=== PATIENT | female | born 1955 | race Caucasian/White ===

== ENCOUNTER 2019-07-17 06:25 | Day surgery (SDC) | payer BC ==
[2019-07-15 09:50] LABS: Basophils % 0.3 % (0-1.3); Hematocrit 40.9 % (36.0-45.0); Lymphocytes % 43.4 % (15.3-44.8); MPV 11.4 fL (7.6-11.3); RBC Red Blood Cell Count 4.46 M/uL (3.86-4.86)
[2019-07-15 09:51] LABS: Urine Appearance CLEAR; Urine Bilirubin NEGATIVE (NEG); Urine Blood NEGATIVE (NEG); Urine Color YELLOW; Urine Glucose NEGATIVE (NEG); Urine Protein NEGATIVE (NEG); Urine Specific Gravity 1.025 (1.005-1.030); Urine Urobilinogen 0.2 mg/dL (0.2-1.0); Urine pH 6.5 (5.0-7.0)
[2019-07-15 09:54] LABS: Urine Microscopic Reflex NO UMIC
[2019-07-17] MEDS ORDERED: SCOPOLAMINE HYDROBROMIDE PATCH TD ONE (06:42)
[2019-07-17] MEDS ORDERED: Ringers Lactate 1,000 ML IV ONE (06:42)
[2019-07-17 06:43] LABS: Specific Gravity 1.025 (1.005-1.030)
[2019-07-17] MEDS ORDERED: ROCURONIUM 50 MG/5 ML VIAL IV ONE (07:11)
[2019-07-17] MEDS ORDERED: LIDOCAINE 2% MPF 5 ML VIAL ONE (07:11)
[2019-07-17] MEDS ORDERED: PROPOFOL 200 MG/20 ML VIAL IV ONE (07:11)
[2019-07-17] MEDS ORDERED: MIDAZOLAM HCL 2 MG/2 ML INJ ONE (07:12)
[2019-07-17] MEDS ORDERED: FENTANYL CITR 250 MCG/5 ML ONE (07:12)
[2019-07-17] MEDS: CEFAZOLIN/SWI 2gm 2 GM/20 ML SYR ONE ×2 (07:32→07:52)
[2019-07-17] MEDS: BUPIVACAINE 0.25% PF 30 ML VIAL ONE ×2 (07:59→08:22)
[2019-07-17] MEDS ORDERED: dexAMETHasone 10 MG/ML VIAL ONE (08:12)
[2019-07-17] MEDS ORDERED: ONDANSETRON 4 MG/2 ML VIAL ONE ×2 (08:15→15:31)
[2019-07-17] MEDS ORDERED: VECURONIUM 10 MG/VIAL IV ONE (08:16)
[2019-07-17] MEDS ORDERED: NS 0.9% VIAL 20 ML ONE (08:16)
[2019-07-17] MEDS ORDERED: GLYCOPYRROLATE 0.2 MG/ML SYR ONE ×3 (08:50→11:36)
[2019-07-17] MEDS: Ringers Lactate 1,000 ML IV ONE ×2 (08:55→10:26)
[2019-07-17] MEDS ORDERED: MEPERIDINE HCL 25 MG/0.5 ML ONE (09:38)
[2019-07-17] MEDS ORDERED: NEOSTIGMINE 1 MG/ML -10 ML VIAL ONE (11:36)
[2019-07-17] MEDS ORDERED: KETOROLAC 30 MG/ML INJ ONE (11:36)
--- NOTE | 2019-07-17 11:44 | RAD REPORT ---
EXAM DESCRIPTION: RAD - Fluoroscopy <1 Hour - 07/17/2019 11:39 am CLINICAL HISTORY: R/O FB , LOST NEEDLE COMPARISON: No comparisons FINDINGS: Fluoroscopy time: 0.6 minutes
[2019-07-17 14:37] VITALS: BP 135/68; TEMP 97.7; O2SAT 95
[2019-07-17] MEDS ORDERED: HYDROCODONE/APAP 5/325 MG TAB ONE (14:41)
--- NOTE | 2019-07-17 22:38 | OP ---
Date of Procedure: 07/17/2019 Surgeon: Kim Coon MD Wheel Grinder: Pamela Henderson. Preoperative Diagnoses: Postmenopausal bleeding, endometrial polyps. Postoperative Diagnoses: Postmenopausal bleeding, endometrial polyps. Procedures Performed: Total laparoscopic hysterectomy, bilateral salpingo-oophorectomy, pelvic washi ngs. Anesthesia: General endotracheal. Estimated Blood Loss: 50 mL. Specimens: Uterus, tubes, and ovaries, and pelvic washings. Findings: Uteroovarian ligament on the left side with possible old endometriosis implant. Left side of the uterus with either a soft fibroid or venous sinus that was large. Other than this no signifi cant uterine prolapse was noted and therefore no need for performance of support procedure. Indications For Procedure: Patient is a 64-year-old lady presented with postmenopausal bleeding. On transvaginal ultrasound her endometrium was thickened. On the ultrasound she had some fibroids, end ometrial thickness was 1.4 cm, so I went ahead and did a hysteroscopy in the office, there were sever al polyps in her entire endometrial cavity. Some of them were removed and adequate sampling was perf ormed with curettings. The pathology was read as benign endometrial polyps. Scant inactive backgrou nd endometrium, all unremarkable. No atypia or malignancy was seen. Intradepartmental consultation was done with the [facility] and they agreed with this. There was some que stion of glandular crowding, but there was no dysplasia or malignancy. So, discussed these with the patient in the presence of all these polyps, offered her the options of observation with ultrasound f ollowup and possible hysteroscopy for followup at some point where if there were recurrent symptoms o r if they were just persistent overtime versus hysterectomy, patient preferred to have her hysterecto my, so did her consent and she was brought to the OR. 2 g of Ancef were given. She was taken back t o OR and placed in a supine fashion on the operating table. After general anesthesia was given, she was placed in a dorsal lithotomy position. Pelvic exam was performed. Uterus was found to be antefl exed, slightly enlarged. No adnexal masses. Cul-de-sac free. Abdomen, vulva, vagina, and perineum were prepped and draped in a sterile fashion. [place] was placed to drain the bladder. Arms were tucked by the side. A time-out was done and then after she was prep ped and draped, then [place] was placed to drain the bladder. A large VCare introduced into the uterus and fixed in place. [place] connected through cysto tubing to an LR bag, emptied 300 for drainage. 1 cm infraumbilical incision was made with a scalpel using the open laparoscopy technique. Fascia wa s incised cut and entry into the peritoneum was performed with S retractors and site of entry was ashly cked, unremarkable. Patient was placed in Trendelenburg. Liver, gallbladder, upper abdominal surfac es, omentum unremarkable. 5 mm suprapubic and 10 mm left lower quadrant ports were placed under dire ct vision after Marcaine was given at all 3 sides, then went on to retract the bowel and the sigmoid epiploica with the help of 3-0 Monocryl stitch, coming out with the Giovanni-Negrito needle through th e left upper quadrant tiny incision. Then as pelvic washings were performed, the left tube was remov ed by taking down the mesosalpinx with the LigaSure. Then, the broad ligament was opened up superior to the round ligament and then inferior to it, then the round ligament was taken down, uteroovarian ligament was taken down, then the fibroid/venous sinus was seen. Then, dissection was performed open ing up the sidewall all the way to the level of the bladder flap. Then, the bladder flap was raised posteriorly taken down to the uterosacral ligament on the left side, then carefully dissecting the ve ssels. The vessels were exposed and skeletonized. Then on the opposite side, similar dissection was performed to skeletonize the vessels. No other pathology was seen on this side. The bladder flap w as made with the help of the monopolar hook blade on top of the anterior vaginal wall, pushing down t he bladder about a centimeter and half. There was some fatty tissue that would not easily dissect fr om the vesicovaginal space causing it to be slightly obliterated. Once the decision with the monopol ar was done, then it was able to be pulled away. Once the vessels were isolated on the right side as well and the posterior peritoneum taken down to t he uterosacrals, then the vessels were taken down with the help of the bipolar basket tip and the Lig aSure. Then, cardinal ligaments were taken down with the LigaSure. On the left side the vessels wer e taken down with the help of the bipolar basket tip and then the LigaSure. The uterine artery seeme d to not be completely occluded, so 2 clips were placed from the lateral aspect from the left lower q uadrant port and 1 clip from the medial to lateral right underneath the uterine vessels from the supr apubic port. There was excellent hemostasis. Thorough irrigation and suction were performed and stevo sure was performed with 0 Vicryl in a hvsjxc-lh-kdgno fashion x3 in the middle and 2 simple sutures o n both ends to close the cuff. Thorough irrigation and suction were performed prior to this the ovar ies were removed with the help of the LigaSure isolating the infundibulopelvic ligament and then the ovaries were removed through the vagina and then the cuff closure was performed. A CT-1 needle that was bent to make it as modified ski needle was missing and potential that while pu lling out through the left lower quadrant port that this was missing, so intraabdominal examination w as performed, no evidence of any foreign body needle inside the belly. Then x-ray was done from the lateral aspect a single shot fill. This showed that the needle was in the left lower quadrant, howev er, unable to identify this, so a C-arm was used to identify it under direct fluoroscopy. Once this was performed, I was able to get the needle with the tip of a hemostat. This was in the subcutaneous tissues at the level of the left lower quadrant port above the level of the oblique muscles. So, th e incision was extended to be 10-12 mm incision after injecting the Marcaine and the needle was taken out without any problems easily, it was right underneath the subcutaneous tissue. Then all the port sites were irrigated thoroughly. Gas was desufflated. Marcaine was injected. The lateral port was closed in a continuous running fashion with a 4-0 Vicryl and same with the umbilical port. The supr apubic closed with an interrupted 4-0 Vicryl stitch. Dermabond placed, vaginal retraction with spong e and a glove was removed, Cartagena was removed. Patient was recovered from anesthesia. Correct instru ment, needle, and sponge counts were done. She was taken to PACU in stable condition. She will foll ow up with me in 1 week. MCKAYLA/MUKESH Voice ID: [id number] Report ID: [id number]
== END 2019-07-17 15:50 | disposition home or self-care (01) ==
LOC: OR 06:25
PROVIDERS: ATTEND Obstetrics & Gynecology
PROC: 0UT24ZZ Resection of Bilateral Ovaries, Percutaneous Endoscopic Approach (ICD-10-PCS; 2019-07-17)
PROC: 0UT74ZZ Resection of Bilateral Fallopian Tubes, Percutaneous Endoscopic Approach (ICD-10-PCS; 2019-07-17)
PROC: 0UT94ZZ Resection of Uterus, Percutaneous Endoscopic Approach (ICD-10-PCS; principal; 2019-07-17 07:30)
DX: N95.0 Postmenopausal bleeding (principal); N84.0 Polyp of corpus uteri; N88.8 Other specified noninflammatory disorders of cervix uteri; N83.8 Other noninflammatory disorders of ovary, fallopian tube and broad ligament; E66.9 Obesity, unspecified; Z68.37 Body mass index [BMI] 37.0-37.9, adult; K50.90 Crohn's disease, unspecified, without complications; Z80.49 Family history of malignant neoplasm of other genital organs; Z82.3 Family history of stroke; Z83.3 Family history of diabetes mellitus
CPT/HCPCS: 85025; 36415; 86900; 88108; 86850; 81025; 86901; 88305; 88307; 81003; 76000; 58571; J2704; J2710; J2250; J3010; J1100; J2175; J0690; J7120 ×2; J2405 ×2

== ENCOUNTER 2022-05-12 07:02 | Day surgery (SDC) | payer BC ==
[2022-05-09 16:32] LABS: Absolute Lymphocytes (CBC) 2.5 K/uL (0.7-4.9); Hematocrit 38.1 % (36.0-45.0); Lymphocytes % 39.1 % (15.3-44.8); MCV 90.3 fL (80-100); MPV 9.9 fL (7.6-11.3); RBC Red Blood Cell Count 4.22 M/uL (3.86-4.86)
[2022-05-09 16:43] LABS: SARS-CoV-2 Antigen Rapid Res Negative (Negative)
[2022-05-09 16:48] LABS: Albumin 3.7 g/dL (3.4-5.0); Bilirubin Total 0.3 mg/dL (0.2-1.0); Potassium 3.7 mmol/L (3.5-5.1); Protein, Total 6.8 g/dL (6.4-8.2)
--- NOTE | 2022-05-10 07:21 | EKG ---
Test Date: 2022-05-09 Test Time: 16:09:23 Registered Nurse Cardiac Telemetry: SIRI MEASUREMENT RESULTS: Intervals: Rate: 56 CO: 158 QRSD: 88 QT: 430 QTc: 414 [place]: P: 67 CO: 158 QRS: -34 T: 72 INTERPRETIVE STATEMENTS: Sinus bradycardia Left axis deviation Abnormal ECG No previous ECG available for comparison Electronically Signed On 05-10-22 07:19:22 CDT by Jose Koch
[~2022-05-12 07:02] MED LIST: CEFOXITIN 2 GM in NA CHLORIDE 0.9% 100 ML IVPB SCH
[2022-05-12] MEDS ORDERED: Ringers Lactate 1,000 ML IV ONE (07:29)
[2022-05-12] MEDS ORDERED: MIDAZOLAM HCL 2 MG/2 ML INJ ONE (08:40)
[2022-05-12] MEDS ORDERED: propofoL 200 MG/20 ML VIAL IV ONE (08:40)
[2022-05-12] MEDS ORDERED: GLYCOPYRROLATE 0.2 MG/ML SYR ONE (08:40)
[2022-05-12] MEDS ORDERED: FENTANYL CITR 250 MCG/5 ML ONE (08:40)
[2022-05-12] MEDS ORDERED: ROCURONIUM 50 MG/5 ML VIAL IV ONE (08:40)
[2022-05-12] MEDS ORDERED: ONDANSETRON 4 MG/2 ML VIAL ONE (08:46)
[2022-05-12] MEDS ORDERED: NEOSTIGMINE 1 MG/ML -10 ML VIAL ONE (08:46)
[2022-05-12] MEDS ORDERED: LIDOCAINE 2% MPF 5 ML VIAL ONE (08:46)
[2022-05-12] MEDS ORDERED: BUPIVACAINE 0.25% PF 10 ML VIAL ONE (08:47)
[2022-05-12] MEDS ORDERED: dexAMETHasone 10 MG/ML VIAL ONE (09:11)
--- NOTE | 2022-05-12 10:01 | P.OP ---
Preoperative diagnosis: Chronic cholecystitis with Cholelithiasis Postoperative diagnosis: Chronic cholecystitis with Cholelithiasis Primary procedure: Laparoscopic cholecystectomy wtih ICG Cholangiography Anesthesia: GETA + Local Estimated blood loss: <5cc Specimen: gallbladder Findings: distended GB / Chronic cholecystitis with Cholelithiasis Complications: None Transferred to: Recovery Room Condition: Good
[2022-05-12] MEDS: HYDROMORPHONE HCL 1 MG/ML INJ ONE ×2 (10:17→10:22)
[2022-05-12 10:28] VITALS: TEMP 96.8
[2022-05-12 11:01] VITALS: BP 126/63; O2SAT 98
--- NOTE | 2022-05-12 22:18 | OP ---
Date of Procedure: 05/12/2022 Surgeon: Neno Arizmendi MD, Preoperative Diagnosis: Chronic cholecystitis with cholelithiasis. Postoperative Diagnosis: Chronic cholecystitis with cholelithiasis. Procedure Performed: Laparoscopic cholecystectomy with indocyanine green (ICG) cholangiography. Anesthesia: General endotracheal plus local with 0.25% Marcaine with epinephrine. Estimated Blood Loss: Less than 5 cc. Specimen: Gallbladder. Findings: Distended gallbladder/chronic cholecystitis with cholelithiasis. Complications: None. Disposition: Patient was transferred to recovery room in good condition. Procedure In Detail: After informed was obtained, patient was brought to the operating room, prepped and draped in the usual sterile fashion. After adequate anesthesia was achieved, a supraumbilical a bassam was anesthetized with 0.25% Marcaine, sharply incised. A 5 mm trocar was placed under direct vis ion without evidence of complication. Insufflation was obtained to 15 mmHg at this time. No injury to vital structures upon entry in the abdomen. Additional trocar was placed in the epigastrium. Thi s similarly was anesthetized and sharply incised. A 5 mm trocar was placed under direct vision witho ut complication. The umbilical trocar was upsized to a 12 mm under direct visualization without comp lication. Additional trocar was placed in the right upper quadrant. This similarly was anesthetized and sharply incised. A 5 mm trocar was placed under direct vision without complication. Patient wa s positioned head up right-side up position. Ratcheted grasper was used to grasp the patient's gallb ladder, placed towards the patient right shoulder. Dissection continued to take the omental attachme nts off the anterior surface of the gallbladder down to the Rebel pouch of the gallbladder. This area was then dissected circumferentially around to expose. These structures were identified as cyst ic duct and cystic artery. ICG cholangiography was performed at this point confirming the anatomic l andmarks as described above and critical view of safety was obtained at this point and confirmed with ICG cholangiography. At this point, double titanium clips were placed on the proximal side, singly on the distal side of both cystic duct and cystic artery. The structures were then ligated with Endo alisa. Gallbladder was removed from the hepatic fossa without complication, placed in the EndoCatch bag, removed from the umbilical trocar and sent off for pathologic examination. The abdomen was endoscopy rn iously irrigated and suctioned out until completely dry. No additional hemostasis was required. Cli ps were found to be good anatomic position at the end of the procedure. The abdomen was then inspect ed at this point. No additional maneuvers were required. The patient was positioned back in a neutr al position. Remaining effluent was suctioned out. The umbilical trocar site was then closed using a Giovanni-Negrito suture passer with 0 Vicryl under interrupted fashion with good approximation of ti ssues. The abdomen was completely desufflated under direct vision without complication. All skin in cisions were copiously irrigated and closed with a 4-0 Monocryl fashion. Dermabond was placed over t he top. Patient was transferred to the PACU in good condition without evidence of complication. All counts were correct at the end of the case. LIAM/MUKESH Voice ID: [id number] Report ID: [id number]
== END 2022-05-12 11:30 | disposition home or self-care (01) ==
LOC: OR 07:02
PROVIDERS: ATTEND Surgery
PROC: BF03YZZ Plain Radiography of Gallbladder and Bile Ducts using Other Contrast (ICD-10-PCS; 2022-05-12)
PROC: 0FT44ZZ Resection of Gallbladder, Percutaneous Endoscopic Approach (ICD-10-PCS; principal; 2022-05-12 08:45)
DX: K80.10 Calculus of gallbladder with chronic cholecystitis without obstruction (principal); Z20.822 Contact with and (suspected) exposure to COVID-19
CPT/HCPCS: 93005; 85025; 36415; 88304; 80053; 87811; 47563; J2704; J2710; J2250; J3010; J1100; J1170; J7120; J0694; J2405